=== PATIENT | male | born 1950 | race Caucasian/White ===

== ENCOUNTER → 2017-01-13 | Outpatient (CLI) | payer MEDICARE ==
[~2017-01-13] MED LIST: ACET650S21 PO; ASPI-496 PO; CARDIA PO; CHOL10002 PO; DEPO TESTOSTERONE; DIGO125T10; FINA5TAB4; HYDR10TA11; HYDR5TAB2; HYDR5TAB2 PO; LANS30CA16; LEVO100T5; LOSA50TA6; MAGN250T PO; MELA5TAB3 PO; MESA800T2 PO; MULT-257 PO; ONDA8TAB16 SL; POTA99TA8 PO; QUIN200T PO; RIVA10TA; SIMV20TA3; lunesta PO
== END | disposition home or self-care (01) ==
LOC: CFH 09:26
PROVIDERS: ATTEND Internal Medicine Hematology & Oncology
DX: C43.9 Malignant melanoma of skin, unspecified (principal); N18.2 Chronic kidney disease, stage 2 (mild); E04.9 Nontoxic goiter, unspecified; N28.1 Cyst of kidney, acquired; Z98.890 Other specified postprocedural states
CPT/HCPCS: 71250; 74176

== ENCOUNTER → 2017-11-25 | Outpatient (CLI) | payer MEDICARE ==
[~2017-11-25] MED LIST changes: -LANS30CA16; +LANS30CA60; -MAGN250T PO; +MAGN250T2 PO; +MELA5TAB21 PO; -MELA5TAB3 PO
== END | disposition home or self-care (01) ==
LOC: CFH 12:04
PROVIDERS: ATTEND Internal Medicine Hematology & Oncology
DX: C43.22 Malignant melanoma of left ear and external auricular canal (principal); N28.1 Cyst of kidney, acquired; Z90.49 Acquired absence of other specified parts of digestive tract; Z85.820 Personal history of malignant melanoma of skin
CPT/HCPCS: 71250; 74176; 82565

== ENCOUNTER → 2019-03-14 | Outpatient (CLI) | payer MEDICARE ==
[~2019-03-14] MED LIST changes: +HYDR-3059; -HYDR10TA11; -HYDR5TAB2; -HYDR5TAB2 PO; +HYDR5TAB7; +HYDR5TAB7 PO; +LOSA50TA14; -LOSA50TA6; -RIVA10TA; +RIVA10TA2
== END | disposition home or self-care (01) ==
LOC: CFH 12:24
PROVIDERS: ATTEND Internal Medicine Hematology & Oncology
DX: C43.22 Malignant melanoma of left ear and external auricular canal (principal)
CPT/HCPCS: 71250; 74176